=== PATIENT | male | born 1970 | race African-American/Black ===

== ENCOUNTER 2021-06-04 21:25 | Emergency (ER) | payer MEDICAID ==
[~2021-06-04] VITALS: Ht 165.1 cm; Wt 73.0 kg
[2021-06-04] MEDS ORDERED: DOXY100C5 MT (23:20)
[2021-06-04] MEDS ORDERED: DOXYCYCLINE HYCLATE 100MG CAPSULE PO ONE (23:30)
[2021-06-05] VITALS: BP 135/88
== END 2021-06-05 00:41 | disposition home or self-care (01) ==
LOC: ER 21:25
DX: J18.9 Pneumonia, unspecified organism (principal); E03.9 Hypothyroidism, unspecified; F12.10 Cannabis abuse, uncomplicated; F17.210 Nicotine dependence, cigarettes, uncomplicated
CPT/HCPCS: 71045; 87426; 99284